=== PATIENT | female | born 1990 | race Caucasian/White ===

== ENCOUNTER 2019-10-19 12:41 | Outpatient (REF) | payer SELFPAY ==
[2019-10-19 12:51] VITALS: BP 126/77; PULSE 71; TEMP 36.8; O2SAT 99
--- NOTE | 2019-10-19 13:04 | W.ED.GENAD ---
Discharge Plan Disposition Patient Disposition: HOME Condition: Improving Discharge Details Chief Complaint: GenMedical Clinical Impression: Acute viral syndrome Primary Care Provider: None,None ED Provider: Jerad Rodarte Home Meds and New Rx's Prescriptions: New guaifenesin [Mucinex] 600 mg tablet extended release 12hr 600 mg PO Q12H PRNQty: 10 RF: 0 Discharge Instructions Instructions: Viral Syndrome (ED) Additional Instructions: Small, frequent sips of fluids to maintain hydration. May take Mucinex as prescribed. May have Benadryl 25 to 50 mg at bedtime as needed for congestion and to aid with sleep. Tylenol 650 to 1000 mg every 6 hours as needed for aches, pains, fever. Home to rest today. Return to the ER for any acute concerns. Please follow-up in women's health as previously scheduled. Stand Alone Forms: Work Release Medical Decision Making 29-year-old female presents from home with 2 days of cough, congestion, fever, body ache. She is 11 weeks . She has no abdominal pain or vaginal discharge. Her vital signs are normal and she is otherwise well-appearing. Rapid influenza screening is negative. Discussed with the patient home management. She is stable and appropriate for trial of outpatient care. She understands indications to seek a reevaluation. HPI General Mode of arrival: ambulatory. Date/Time Provider Initiated Documentation: 10/19/19 12:55. Limitations to Documentation: no limitations. Information obtained by: patient. History of Present Illness 29 year old F presents to the emergency department with the chief complaint of Upper respiratory illness. 11 weeks ., described as mild, and is localized to the chest. Patient started experiencing this day(s) and it has been constant. No relieving factors improve symptom(s), No exacerbating factors reported . Patient notes cough, fever/chills and malaise; denies syncope and weakness. Patient did receive the following treatments prior to arrival, none Related Data Home Medications Medication Instructions Recorded Confirmed guaifenesin [Mucinex] 600 mg PO Q12H PRN #10 tab 10/19/19 Previous Rx's Medication Instructions Recorded guaifenesin [Mucinex] 600 mg PO Q12H PRN #10 tab 10/19/19 Allergies Allergy/AdvReac Type Severity Reaction Status Date / Time No Known Allergies Allergy Verified 10/19/19 13:24 General Stated Complaint: GenMedical DAT: 3 Review of Systems Narrative: 6 systems reviewed and otherwise negative. Sick contacts with her . No recent travel. No vaginal discharge or abdominal pain. [facility] Family History (Updated 10/01/19 @ 16:01 by aCrmela Jaime NP) Father Cirrhosis at 51 Hepatitis C Mother Well adult Social History Smoking/Tobacco Use Status: Never Alcohol Intake: never Drug use: Never Substance use type: does not use Do you feel safe at home: Yes Do you feel safe in your relationship?: Yes Exam Narrative Exam Narrative: GEN: awake, alert, oriented 3. Pleasant, well groomed, interactive. HEAD: Normocephalic, atraumatic ENT: Mucous membranes dry, oropharynx unremarkable, External ear exam unremarkable EYES: PERRL, EOMI NECK: Full ROM, no MAYELA, no menigismus CHEST/RESP: Nontender, clear to auscultation bilateral, no wheeze/rhonchi/rales CARDIOVASCULAR: RRR, no murmur, rub kit. 2+ Rad pulse bilateral ABDOMEN: Soft, nontender, no mass. +Bowel sounds EXT: Full ROM, no edema, no rash Neuro: Grossly normal neurologic exam, conversant, interactive. Psych: Speech fluent, thoughts congruent, affect normal Course Vital Signs Vital signs: Vital Signs Temperature 36.8 C 10/19/19 12:51 Pulse 71 10/19/19 12:51 Blood Pressure 126/77 10/19/19 12:51 Pulse Oximetry 99 10/19/19 12:51 Temperature 36.8 C 10/19/19 12:51 Temperature Source Temporal Artery Scan 10/19/19 12:51 Pulse 71 10/19/19 12:51 Blood Pressure 126/77 10/19/19 12:51 Blood Pressure Position Sitting 10/19/19 12:51 Pulse Oximetry 99 10/19/19 12:51 Oxygen Delivery Method Room Air 10/19/19 12:51 Oxygen Flow Rate 0 10/19/19 12:51 Pain Level 0 10/19/19 12:51 Lab/Test Results Lab/Test Results: 10/19/19 12:50 Nasopharynx Influenza Types A,B Antigen - Pending
[2019-10-19] MEDS: Acetaminophen 500 MG TAB 1000 MG PO (13:20)
[2019-10-19 13:21] VITALS: RESP 16
== END 2019-10-21 17:20 ==
LOC: LBN 10-21 17:00
PROVIDERS: Emergency Provider Emergency Medicine; Visit Provider Advanced Practice Midwife
DX: R05 Cough (principal); R50.9 Fever, unspecified; M79.10 Myalgia, unspecified site; B34.9 Viral infection, unspecified; Z3A.11 11 weeks gestation of pregnancy
CPT/HCPCS: 87449; 99283

== ENCOUNTER 2019-10-21 16:01 | Outpatient (CLI) | payer SELFPAY ==
[2019-10-21 16:34] LABS: Abs Immature Grans 0.01 k/cumm (0.0-0.09); Absolute Basophil Count 0.02 k/cumm (0.0-0.2); Absolute Eosinophil Count 0.33 k/cumm (0.0-0.7); Absolute Lymphocyte Count 1.72 k/cumm (1.2-3.4); Absolute Monocyte Count 0.47 k/cumm (0.11-0.7); Absolute Neutrophil Count 4.93 k/cumm (1.2-6.7); Basophils % 0.3; Eosinophils % 4.4; HGB 12.5 g/dL (12.0-15.5); Immature Grans % 0.1 %; Mean Corp. HGB Concentration 33.8 g/dL (32.0-36.0); Mean Corpuscular Hemoglobin 28.7 pg (27.0-33.0); Mean Corpuscular Volume 85.1 fL (80-95); Mean Platelet Volume 9.4 fL (8.0-11.0); Monocytes % 6.3; Neutrophils % 65.9; Platelet Count 351 x1000/uL (130-400); RBC 4.35 m/cumm (4.00-5.20); RBC Distribution Width 13.5 % (11.7-14.6); White Blood Cell Count 7.48 k/cumm (4.4-10.8)
[2019-10-21 18:06] LABS: TSH (W/Ref FT4) 3.12 uIU/mL (0.36-3.74)
[2019-10-23 09:49] LABS: Hepatitis B Surface Ag Negative (Negative)
[2019-10-23 10:06] LABS: HIV-1/2 Ag & Ab Screen Negative (Negative)
[2019-10-23 11:23] LABS: Varicella IgG Antibody Positive (See Note)
[2019-10-23 11:42] LABS: Hepatitis C Ab w Rflx HCV PCR Negative (Negative); Rubella IgG Ab (UVM) Negative (See Note)
[2019-10-23 16:21] LABS: Syphilis Total Ab w/Reflex Nonreactive (Nonreactive)
== END 2019-10-21 16:21 ==
PROVIDERS: Visit Provider Advanced Practice Midwife
DX: Z34.91 Encounter for supervision of normal pregnancy, unspecified, first trimester (principal); Z11.59 Encounter for screening for other viral diseases; Z11.4 Encounter for screening for human immunodeficiency virus [HIV]; Z01.84 Encounter for antibody response examination
CPT/HCPCS: 36415; 86787; 86803; 86850; 86900; 86901; 87340; 87389; 84443; 85025; 86762; 86780

== ENCOUNTER 2019-10-21 16:56 | Outpatient (REF) | payer SELFPAY ==
--- NOTE | 2019-10-21 15:30 | PAPFT_PTH ---
PATIENT: Madisyn Stoll I LOC: [facility]GE U#:[id number] AGE/SX: 29/F ROOM: RE10/21/[address]: Divine Alejandro CNM : 1990 BED: DIS: 10/21/2019 SPEC #: [id number] RECD: 10/21/19 17:46 STATUS: YOANDY REQ #: [id number] ELO: 10/21/19 15:[address]: Divine Alejandro DEPT: [facility] Cytology RECD BY: Leila Matamoros ENTERED: 10/21/19 17:46 SP TYPE: PAPFT OTHR DR: None Tissues: 1 - CX/ENDOCX FOR PAP SMEARS Procedures: PAP THIN PREP/UVM Screening Comments: [id number]
[2019-10-21 19:04] LABS: *AMPHETAMINES SCREEN URINE Negative (Negative); *BARBITURATES SCREEN URINE Negative (Negative); *BENZODIAZEPINES SCREEN URINE Negative (Negative); Cannabinoids THC Negative (Negative); Cocaine Screen,Urine Negative (Negative); METHADONE URINE SCREEN Negative (Negative); OPIATES URINE SCREEN Negative (Negative)
[2019-10-21 19:26] LABS: Tricyclic Antidepressants Negative (Negative)
[2019-10-23 15:31] LABS: Chlamydia Result Negative (Negative); GC Result Negative (Negative)
[2019-10-26 13:07] LABS: Buprenorphine Negative; Norbuprenorphine Negative
== END 2019-10-21 17:16 ==
LOC: LBN 16:56
PROVIDERS: Visit Provider Advanced Practice Midwife
DX: Z34.91 Encounter for supervision of normal pregnancy, unspecified, first trimester (principal); Z11.3 Encounter for screening for infections with a predominantly sexual mode of transmission; Z12.4 Encounter for screening for malignant neoplasm of cervix; Z11.51 Encounter for screening for human papillomavirus (HPV)
CPT/HCPCS: 80307; 87491; 87591; 88142; 87086

== ENCOUNTER 2019-10-24 09:02 | Outpatient (CLI) | payer SELFPAY ==
[2019-10-24 09:49] LABS: Glucose,1 Hr (Glucola) 63 mg/dL (80-140)
[2019-10-26 11:31] LABS: Thyroglobulin Antibody 23 U/mL (<=60); Thyroperoxidase Antibody <28 U/mL (<=60)
== END 2019-10-24 09:22 ==
PROVIDERS: Obstetrics & Gynecology Gynecology; Visit Provider Advanced Practice Midwife
DX: Z34.91 Encounter for supervision of normal pregnancy, unspecified, first trimester (principal)
CPT/HCPCS: 36415; 82950; 86376

== ENCOUNTER 2019-12-02 01:19 | Outpatient (CLI) | payer SELFPAY ==
--- NOTE | 2019-12-02 09:30 | DI.US_ITS ---
EXAM: US OB 2-3 TRIMESTER CLINICAL HISTORY: , Z34.90. TECHNIQUE: Transabdominal obstetrical ultrasound performed. COMPARISON: No exams were available for comparison FINDINGS: There is a single living intrauterine gestation. The fetus is in the breech position. heart rate is 160 beats per minute. No anatomic abnormalities are identified. Estimated gestational age is 18 weeks 1 day. Visually the amniotic fluid appears within normal limits. The placenta is anterior without evidence of previa. Along the uterine cavity opposite the side of the placenta, there is a cystic area by a thi n band. The area measures 3.6 x 1.2 x 3.1 cm. It is separate from the placenta and the fetus. It i s posterior and fundal in location. IMPRESSION: 1. Single live intrauterine gestation as above. 2. Normal anatomic survey. 3. 3.6 x 1.2 x 3.1 cm cystic area along the posterior and fundal wall of the gestational sac. It is separate from both the placenta and the fetus. Differential considerations include focal separation of chorioamniotic membrane, resolving hematoma, or uterine synechia among other etiologies including an amniotic band. 4. The findings were discussed with the patient's primary care physician. DATA REPOSITORY:
== END 2019-12-02 01:39 ==
PROVIDERS: Visit Provider Obstetrics & Gynecology
DX: Z34.92 Encounter for supervision of normal pregnancy, unspecified, second trimester (principal); Z3A.18 18 weeks gestation of pregnancy; O28.3 Abnormal ultrasonic finding on antenatal screening of mother
CPT/HCPCS: 76805

== ENCOUNTER 2019-12-31 00:36 | Outpatient (CLI) | payer SELFPAY ==
--- NOTE | 2019-12-31 07:31 | DI.US_ITS ---
EXAM: US OB F/U FACIAL/LVOT/RVOT CLINICAL HISTORY: F/U placental cyst vs synechiae on 2nd trimester u/s,043.109. COMPARISON: US OB 2-3 TRIMESTER from 12/02/2019 TECHNIQUE: Transabdominal obstetrical ultrasound performed. FINDINGS: Sonographic images demonstrate a single intrauterine gestation in breech position. Anterior placenta. The previously noted cystic area seen along the uterine wall is no longer seen. heart rate motion is Dopplered at: 144 bpm. Amount of amniotic fluid is within normal limits. IMPRESSION: Previously noted cystic area along the posterior uterine wall is no longer identified. DATA REPOSITORY:
== END 2019-12-31 00:56 ==
PROVIDERS: Visit Provider Obstetrics & Gynecology Gynecology
DX: O43.102 Malformation of placenta, unspecified, second trimester (principal)
CPT/HCPCS: 76815

== ENCOUNTER 2020-03-01 12:18 | Outpatient (CLI) | payer SELFPAY ==
[2020-03-03 14:08] LABS: COVID-19 RT-PCR UVMMC Result Negative (Negative)
== END 2020-03-01 12:38 ==
PROVIDERS: PCP Obstetrics & Gynecology; Visit Provider Obstetrics & Gynecology
DX: Z20.828 Contact with and (suspected) exposure to other viral communicable diseases (principal)
CPT/HCPCS: U0003

== ENCOUNTER 2020-03-08 02:17 | Outpatient (CLI) | payer SELFPAY ==
[2020-03-08 12:23] LABS: Abs Immature Grans 0.03 k/cumm (0.0-0.09); Absolute Basophil Count 0.01 k/cumm (0.0-0.2); Absolute Eosinophil Count 0.13 k/cumm (0.0-0.7); Absolute Lymphocyte Count 1.33 k/cumm (1.2-3.4); Absolute Monocyte Count 0.47 k/cumm (0.11-0.7); Absolute Neutrophil Count 6.02 k/cumm (1.2-6.7); Basophils % 0.1; Eosinophils % 1.6; HCT 26.9 % (36.0-46.0); HGB 8.5 g/dL (12.0-15.5); Immature Grans % 0.4 %; Lymphocytes % 16.6; Mean Corp. HGB Concentration 31.6 g/dL (32.0-36.0); Mean Corpuscular Hemoglobin 26.5 pg (27.0-33.0); Mean Corpuscular Volume 83.8 fL (80-95); Monocytes % 5.9; Neutrophils % 75.4; Platelet Count 329 x1000/uL (130-400); RBC 3.21 m/cumm (4.00-5.20); White Blood Cell Count 7.99 k/cumm (4.4-10.8)
[2020-03-08 12:24] LABS: Glucose,1 Hr (Glucola) 103 mg/dL (80-140)
[2020-03-08 13:16] LABS: Diff Comment RBC Morph Reviewed; Hypochromasia 1+; Polychromasia Present
== END 2020-03-08 02:37 ==
PROVIDERS: Visit Provider Obstetrics & Gynecology
DX: Z34.93 Encounter for supervision of normal pregnancy, unspecified, third trimester (principal)
CPT/HCPCS: 36415; 82950; 85025

== ENCOUNTER 2020-04-14 13:27 | Outpatient (REF) | payer MEDICAID, SELFPAY | END 2020-04-14 13:47 | LOC: LBN 13:27 | PROVIDERS: Visit Provider Obstetrics & Gynecology | DX: Z34.90 Encounter for supervision of normal pregnancy, unspecified, unspecified trimester (principal) | CPT/HCPCS: 87081 ==

== ENCOUNTER 2020-04-17 20:47 | Inpatient (IN) | payer MEDICAID, SELFPAY ==
[2020-04-17 21:25] LABS: ROM Plus Negative
[2020-04-17 21:54] LABS: Abs Immature Grans 0.09 10^3/uL (0.0-0.06); Absolute Basophil Count 0.02 10^3/uL (0.0-0.2); Absolute Eosinophil Count 0.12 10^3/uL (0.0-0.7); Absolute Lymphocyte Count 1.72 10^3/uL (1.2-3.4); Absolute Monocyte Count 0.58 10^3/uL (0.1-0.8); Absolute Neutrophil Count 5.59 10^3/uL (1.2-6.7); Basophils % 0.2; Eosinophils % 1.5; HCT 28.5 % (36.0-46.0); HGB 9.2 g/dL (11.2-15.7); Immature Grans % 1.1; Lymphocytes % 21.2; MCH 26.8 pg (27.0-33.0); MCHC 32.3 % (32.0-36.0); MCV 83.1 fL (80-95); MPV 9.2 fL (8.0-11.0); Monocytes % 7.1; Neutrophils % 68.9; Nucleated RBC 0 %; Platelet Count 293 10^3/uL (130-400); RBC 3.43 10^6/uL (3.93-5.22); RDW 15.6 % (11.7-14.6); RDW-SD 47.2 fL; WBC 8.12 10^3/uL (4.4-10.8)
[2020-04-17] MEDS: AZITHROMYCIN 500 MG in Normal Saline 250 ML 250 MG IVPB (22:00)
[2020-04-17] MEDS: Sodium Citrate 30 ML CUP PO (22:00)
--- NOTE | 2020-04-17 22:02 | HPE_ITS ---
Date of service: 04/17/20 Time of Service: 22:03 Assessment and Plan Assessment and plan (1) Anemia affecting in third trimester: Status: Acute (2) Previous section: Status: Chronic Assessment and plan: Patient with spontaneous rupture membranes who requested a repeat delivery. She has been counseled regarding the risk of the procedure including the risk of infection damage to surrounding structures including bowel bladder ureter and blood vessels. She will have a tubal sterilization performed at the time of her repeat delivery. OR team has been notified. The plan is to administer azithromycin and cefazolin IV preoperatively. (3) : Status: Acute Qualifiers: Weeks of gestation: 37 weeks Qualified Code(s): Z3A.37 - 37 weeks gestation of History of Present Illness History of Present Illness Chief Complaint: Intrauterine at 37-2 nidia pineda with SROM Narrative: Patient is a 30-year-old G3, P2 female with a estimated date of delivery of 05/06/2020 by a LMP confirmed by a OB first her menstrual ultrasound who has been followed by the [facility] since 9 weeks estimated gestational age. She has a total of 11 visits for estramustine blood pressure 110/70 there trimester blood pressure 112/68 total weight gain 9 pounds. Patient's labs have been normal with the exception of heme hematocrit of 26% at 28 weeks she has been instructed to take supplemental iron. Question of a uterine synechiae versus placental cyst on a second trimester ultrasound. Repeat ultrasound imaging showed normal placentation. During her course she was counseled regarding options for a trial of labor and decided upon a repeat delivery with bilateral tubal sterilization. Her Medicaid federal consent form was signed on 03/21/2020. Patient reported a gush of clear fluid this evening accompanied by uterine tightening. She was instructed to present to the center. Review of Systems Constitutional Constitutional: Reports as per HPI Cardiovascular Cardiovascular: Reports system reviewed and no additional complaints, except as documented Respiratory Respiratory: Reports system reviewed and no additional complaints, except as documented Gastrointestinal Gastrointestinal: Reports system reviewed and no additional complaints, except as documented Genitourinary Comments: Gush of clear fluid and tightening of her abdomen earlier this evening. Integumentary/Breasts Comments: Patient reported being interested in breast-feeding Psychiatric Psychiatric: Reports as per HPI Comments: Calm anticipating repeat [facility] Medical History (Updated 04/17/20 @ 22:15 by Amarilys Lee MD) Anemia affecting in third trimester (Acute) 03/08/20. Hct 26%. Pt instructed to begin daily supplemental iron in addition to her vitamin. Family History (Updated 10/01/19 @ 16:01 by Carmela Jaime NP) Father Cirrhosis at 51 Hepatitis C Mother Well adult Social History (Updated 04/18/20 @ 00:55 by Amarilys Lee MD) Smoking/Tobacco Use Status: Never Alcohol Intake: never Drug use: Never Substance use type: does not use Household members: spouse and other Details: H-Caleb Number of Children: 3 Do you feel safe at home: Yes Do you feel safe in your relationship?: Yes History History 3 Para 3 Hx # Term Pregnancies 3 Multiple births 0 Hx # Pregnancies 0 Ectopic pregnancies 0 AB induced 0 Hx Number of Living Children 3 AB spontaneous 0 Past Pregnancies Del. Date GA/Weeks # Outcome Route Wgt Sex Labor Lgth Anesthes ia Location Prov Complic 08/26/15 39 No Successful 7 lb 6 oz Female [facility] 03/29/17 39 No Successful 7 lb 9 oz Female [facility] 04/17/20 37 No Successful Male AO C Delivery Date: 08/26/15 Scheduled C/S for breech Aleta Alejandro Delivery Date: 03/29/17 scheduled repeat C/S Aleta Alejandro Delivery Date: 04/17/20 SROM with cervical dilation. Repeat with bilateral tubal ligation. Amarilys Olmstead Home Medications and Allergies Home Medications Medication Instructions Recorded Confirmed Type acetaminophen 325 mg capsule 650 mg PO Q6H PRN cap 10/21/19 04/14/20 History diphenhydramine HCl 25 mg capsule 20 mg PO QHS PRN cap 10/21/19 04/14/20 History PNV 153-FA 400 mcg-om3 35 mg-dha tab PO DAILY tab 01/25/20 04/14/20 History 25 mg-epa 5 mg-fish oil chew tablet ferrous sulfate 325 mg (65 mg 325 mg PO BID 03/21/20 04/14/20 History iron) tablet calcium carbonate 300 mg (750 mg) 300 mg PO TID 04/04/20 04/14/20 History chewable tablet Allergies Allergy/AdvReac Type Severity Reaction Status Date / Time No Known Allergies Allergy Verified 04/14/20 09:14 Exam Narrative Exam Narrative: Patient was admitted to the center and a ROM+ was obtained with a negative result. However there is copious loss of clear fluid with nitrazine positive results. heart rate in the 150 range with category 1 tracing accelerations 15 x 15. No decelerations. Contractions every 2 to 3 minutes. Will perform vaginal exam prior to transfer to OR. Const General: cooperative and no acute distress Nutritional Appearance: obese Neck Neck: normal visual inspection Resp Effort & Inspection: normal respiratory effort Auscultation: clear to auscultation bilaterally Cardio Rate: regular rate Rhythm: regular rhythm GI Inspection: large pannus Palpation: soft (Gravid) Manual OB Exam: dilated 3 Amniotic Fluid: clear and Nitrazine positive Skin General skin exam: no rashes or lesions noted Extrem General: normal to inspection, capillary refill normal and no clubbing, cyanosis or edema Results Labs Result diagrams: 04/17/20 21:38 Labs: Laboratory Results - last 24 hr 04/17/20 04/17/20 21:00 21:38 WBC 8.12 RBC 3.43 L Hgb 9.2 L Hct 28.5 L MCV 83.1 MCH 26.8 L MCHC 32.3 RDW 15.6 H Plt Count 293 MPV 9.2 Immature Gran % 1.1 Neutrophils % 68.9 Lymphocytes % 21.2 Monocytes % 7.1 Eosinophils % 1.5 Basophils % 0.2 Absolute Neutrophils 5.59 Absolute Lymphocytes 1.72 Absolute Monocytes 0.58 Absolute Eosinophils 0.12 Absolute Basophils 0.02 Membranes Rupture Negative COVID-19 Screening Have you,or household,traveled outside [place] in last 14 days?: No
[2020-04-17] MEDS: ceFAZolin 1 GM/50 ML BAG IVPB (22:24)
--- NOTE | 2020-04-17 23:46 | FALL_PTH ---
PATIENT: Madisyn Stoll I LOC: OBS U#:[id number] AGE/SX: 30/F ROOM: OBS.304 RE04/17/[address]: Amarilys Lee : 1990 BED: A DIS: 04/19/2020 SPEC #: [id number] RECD: 04/18/20 12:21 STATUS: YOANDY REQ #: [id number] ELO: 04/17/20 23:[address]: Amarilys Lee DEPT: Surgical Specimen RECD BY: Leila Matamoros ENTERED: 04/18/20 12:22 SP TYPE: Fall OTHR DR: No Local Tissues: 1 - FALLOPIAN TUBE (STERILIZATION) 2 - FALLOPIAN TUBE (STERILIZATION) Procedures: GROSS AND MICRO LEVEL 2 Comments: [id number]
[2020-04-18] MEDS: Ondansetron 4 MG/2 ML VIAL IVP (02:40)
[2020-04-18] MEDS: Normal Saline Flush 10 ML SYR IVP (02:40)
[2020-04-18] MEDS: MORPHine 2 MG/ML SYR 1 MG IVP (03:25)
[2020-04-18] MEDS: oxyCODONE 5 mg/Acetaminophen 325 mg TAB PO ×3 (04:17→20:09)
[2020-04-18] MEDS: Lactated Ringers 1,000 ML 120 ML IV (05:00)
[2020-04-18] MEDS: Ketorolac 30 MG/ML VIAL IVP ×2 (06:27→12:34)
[2020-04-18] MEDS: Metoclopramide 10 MG/2 ML VIAL IVP (06:52)
[2020-04-18 08:11] LABS: HCT 30.2 % (36.0-46.0); HGB 9.5 g/dL (11.2-15.7); MCH 26.8 pg (27.0-33.0); MCHC 31.5 % (32.0-36.0); MCV 85.1 fL (80-95); MPV 9.1 fL (8.0-11.0); Platelet Count 280 10^3/uL (130-400); RBC 3.55 10^6/uL (3.93-5.22); RDW 15.7 % (11.7-14.6); RDW-SD 48.7 fL; WBC 11.36 10^3/uL (4.4-10.8)
--- NOTE | 2020-04-18 12:19 | W.PM.OP ---
Date of service: 04/18/20 Time of Service: 12:20 Operative Note Operative Note DATE OF PROCEDURE: 04/17/20 PRE-OP DIAGNOSIS: IUP with spontaneous rupture membranes at 37-2/7 weeks EGA. 2 prior deliveries. POST-OP DIAGNOSIS: same Brady breech presentation PROCEDURE: Unscheduled urgent nonelective low transverse delivery with bilateral salpingectomy SURGEON: Amarilys Lee TURPENTINE FARMER: Gabi Tyler ANESTHESIA: spinal ESTIMATED BLOOD LOSS: 500 PATHOLOGY: other (Bilateral fallopian tubes) COMPLICATIONS: None Patient was transported to: floor Patient's condition: stable Indications: 30-year-old G3, P2 female with a history of 2 prior deliveries who was counseled during her regarding options for delivery. She declined a trial of labor at [facility] and was scheduled for a elective repeat delivery later in the month. She has signed federal consent for tubal sterilization and requested bilateral permanent tubal sterilization. She presented with spontaneous rupture membranes clear fluid and proceeded to have a repeat delivery with bilateral tubal sterilization Findings: Viable male infant who will be named Roc in the brady breech presentation clear amniotic fluid weight 7 pounds 2 ounces (3253 gm) Apgars 7/8. Normal adnexa normal uterus. A Pesko uterine peritoneum was adherent to the mid position of the anterior portion of the uterus and was dissected off to access the lower uterine segment. Procedure Description: Patient was taken to the operating room she is placed in the sitting position and spinal anesthesia was administered without difficulty. She was then placed in the dorsal supine position with a leftward tilt. SCDs and a Garrett catheter to gravity drainage were in place. A vaginal prep with Betadine was performed and the patient was prepped and draped in the usual sterile fashion. After a adequate level of anesthesia was achieved a Pfannenstiel skin incision was made approximately 2 cm superior to the pubic symphysis using a scalpel and the underlying subcutaneous tissue dissected using Bovie electrocautery to the level of the rectus fascia. The rectus fascia was then nicked in the midline and the fascial incision extended laterally using curved Montes scissors. 2 Ivanna clamps were applied to the inferior rectus fascia and the rectus fascia was dissected off of the underlying rectus muscles using Bovie electrocautery and blunt technique. A similar technique was carried out on the superior rectus fascia. Rectus muscles were then in the midline and the peritoneum entered bluntly higher up on the anterior surface of the uterus then would normally be performed. The peritoneum was dissected off of the lower uterine segment using sharp dissection and blunt technique. An Bryan self-retaining retractor was then placed in the incision and opened allowing excellent visualization of the uterus. The vesicle-uterine peritoneum over lower uterine segment was incised with curved Montes scissors and the bladder flap created bluntly. Scalpel was used to incise the lower uterine segment in a transverse fashion. The uterine incision was extended bluntly and the amniotic sac was ruptured and a finger was placed on each anterior superior iliac crest of the breech presentation with some to difficulty the Bryan retractor removed and fascial incision incised vertically to a depth of 2 cm which allowed buttocks to be delivered with assistance of fundal pressure. The and the buttocks followed by the trunk were delivered to the level of the shoulders. Both arms were swept across the chest and the head was delivered atraumatically. The cord was doubly clamped and cut and the handed off to the waiting pediatric team. Cord bloods were obtained and the placenta was extracted with a combination of fundal massage and gentle cord traction. The uterus was exteriorized cleared of all clots and debris and the uterine incision reapproximated with a running lock suture of 0 Vicryl followed by a second imbricating suture of 0 Vicryl. Uterine incision was noted be hemostatic. A LigaSure device was used to clamp cauterize and transect the right fallopian tube at the fimbriated end along and along the mesosalpinx to the level of the right uterine cornua where the right fallopian tube was cauterized, transected and removed intact and passed off the operative field. A similar technique was carried out on the contralateral left fallopian tube. There was a hematoma along the superior proximal portion of the right venous plexus at the uterine cornua. The hematoma was repaired and controlled using interrupted suture of 0 Vicryl. Both pedicle sites from the ectomy were noted be hemostatic. The uterus was returned to the abdomen. The peritoneum was reapproximated with a running suture of 2-0 Vicryl. The rectus fascial vertical incision was reapproximated with a running suture 0 Vicryl. The rectus fascia of the was reapproximated with a running suture of 0 Vicryl extending from the left lateral margin and completed at the right lateral margin. Subcutaneous tissue was closed with a running suture of 2-0 Vicryl. The subcutaneous tissue the and was undermined with Bovie electrocautery to allow reapproximation of the skin using 4-0 Vicryl in a subcuticular suture. Skin was closed with skin glue and a dry sterile dressing applied. Uterus was massaged for any remaining clots and debris. [facility] to recovery area in stable condition all sponge lap needle counts correct x2.
[2020-04-18 14:15] LABS: COVID-19 RT-PCR UVMMC Result Negative (Negative)
[2020-04-18] MEDS: Docusate Sodium 100 MG CAP PO ×2 (15:59→22:47)
--- NOTE | 2020-04-19 07:33 | DSE_ITS ---
DS: Diagnosis Discharge Diagnosis (1) Anemia affecting in third trimester: Status: Acute (2) Previous section: Status: Chronic (3) : Status: Acute (4) Labor presentation, breech: Status: Acute (5) Hx of section: Status: Chronic Discharge Plan Disposition Patient Disposition: HOME Condition: Good Discharge Details Reason For Visit: RUPTURED MEMBRANES Admit Date/Time: 04/17/20 21:24 Admit Provider: Amarilys Lee Attending Provider: Amarilys Lee Primary Care Provider: [facility] Course Hospital Course: Patient [facility] during her course which was uncomplicated. She had 2 previous deliveries and declined a trial of labor at [facility]. She requested a repeat delivery and bilateral tubal sterilization at the time of her repeat section. On the evening of surgery she presented with rupture of membranes and cervical dilatation. A delivery was performed with tubal sterilization the infant was in breech presentation at that time. Patient was discharged home on postop day 2 tolerating a regular diet voiding spontaneously and using rare Percocet and ibuprofen for pain. The plan is to perform a telehealth visit in 2 weeks to assess her mood and course. Home Meds and New Rx's Prescriptions: No Action acetaminophen [Tylenol] 325 mg capsule 650 mg PO Q6H PRNRF: 0 diphenhydramine HCl [Benadryl] 25 mg capsule 20 mg PO QHS PRNRF: 0 calcium carbonate [Tums] 300 mg (750 mg) tablet,chewable 300 mg PO TID RF: 0 Gummies 400 mcg-35 mg- 25 mg-5 mg tablet,chewable 1 tab PO DAILY RF: 0 ferrous sulfate [iron] 325 mg (65 mg iron) tablet 325 mg PO BID RF: 0 Discharge Instructions Stand Alone Forms: BC Discharge Instruc Activity:: Activity as Tolerated Equipment/Supplies:: No Equipment Needed Diet:: As Tolerated Discharge Orders Discharge Orders: Discharge Order (Routine); Ordered 04/19/20 Ordered By: Amarilys Lee DS: Summary Status at Discharge Functional status at discharge: independent ambulation Overall status at discharge: patient is back to baseline Mental Status: mental status grossly normal Speech and Movement: speech and movement normal Mood: congruent mood Affect: normal affect Exam Psych Mental Status: mental status grossly normal Speech and Movement: speech and movement normal Mood: congruent mood Affect: normal affect DS: Data Vitals/I&O Vitals and I&O: Vital Signs Pain Level 6 04/18/20 20:09 Intake & Output 04/18/20 04/18/20 04/19/20 11:59 23:59 11:59 Weight 249 lb Data Completed and Pending Labs on day of discharge: Labs from last 24 hours 04/18/20 04/17/20 08:00 22:10 WBC 11.36 H D RBC 3.55 L Hgb 9.5 L Hct 30.2 L MCV 85.1 MCH 26.8 L MCHC 31.5 L RDW 15.7 H Plt Count 280 MPV 9.1 COVID-19 PCR Negative Nasopharyn COVID-19 PCR Not Applicable Ref Test Perform Site [facility] lab [facility] Medical History (Updated 04/19/20 @ 07:48 by Amarilys Lee MD) Anemia affecting in third trimester (Acute) 03/08/20. Hct 26%. Pt instructed to begin daily supplemental iron in addition to her vitamin. Labor presentation, breech (Acute) Surgical History (Updated 04/19/20 @ 07:49 by Amarilys Lee MD) Hx of section (Chronic) Family History (Updated 10/01/19 @ 16:01 by Carmela Jaime NP) Father Cirrhosis at 51 Hepatitis C Mother Well adult Social History (Updated 04/18/20 @ 00:55 by Amarilys Lee MD) Smoking/Tobacco Use Status: Never Alcohol Intake: never Drug use: Never Substance use type: does not use Household members: spouse and other Details: H-Caleb Number of Children: 3 Do you feel safe at home: Yes Do you feel safe in your relationship?: Yes History History 3 Para 3 Hx # Term Pregnancies 3 Multiple births 0 Hx # Pregnancies 0 Ectopic pregnancies 0 AB induced 0 Hx Number of Living Children 3 AB spontaneous 0 Past Pregnancies Del. Date GA/Weeks # Outcome Route Wgt Sex Labor Lgth Anesthes ia Location Prov Complic 08/26/15 39 No Successful 7 lb 6 oz Female [facility] 03/29/17 39 No Successful 7 lb 9 oz Female [facility] 04/17/20 37 No Successful Male AO C Delivery Date: 08/26/15 Scheduled C/S for breech Aleta Alejandro Delivery Date: 03/29/17 scheduled repeat C/S Aleta Alejandro Delivery Date: 04/17/20 SROM with cervical dilation. Repeat with bilateral tubal ligation. Amarilys Olmstead
[2020-04-19] MEDS: oxyCODONE 5 mg/Acetaminophen 325 mg TAB PO (08:04)
== END 2020-04-19 11:30 | disposition home or self-care (01) | DRG 785 ==
PROVIDERS: Admitting Provider Obstetrics & Gynecology Gynecology; Visit Provider Obstetrics & Gynecology Gynecology
PROC: 10D00Z1 Extraction of Products of Conception, Low, Open Approach (ICD-10-PCS; CPT 59514; principal; 2020-04-17 22:30)
DX: O75.82 Onset (spontaneous) of labor after 37 completed weeks of gestation but before 39 completed weeks gestation, with delivery by (planned) cesarean section (principal); Z37.0 Single live birth; Z3A.37 37 weeks gestation of pregnancy; Z30.2 Encounter for sterilization; O42.02 Full-term premature rupture of membranes, onset of labor within 24 hours of rupture; O34.211 Maternal care for low transverse scar from previous cesarean delivery; O32.1XX0 Maternal care for breech presentation, not applicable or unspecified; O99.02 Anemia complicating childbirth; D64.9 Anemia, unspecified; N99.4 Postprocedural pelvic peritoneal adhesions
CPT/HCPCS: 59514; 58611; 36415; 84112; 85027; 86850; 86900; 86901; NC; U0003; 85025; 88302; J0456; J0690; J1885; J2270; J2310; J2405; J2765; J3010

== ENCOUNTER 2020-07-21 16:52 | Outpatient (REF) | payer MEDICAID, SELFPAY ==
[2020-07-26 15:21] LABS: Patient Race White; SARS-CoV-2 RNA Undetected (Undetected); SARS-CoV-2 Specimen Source Nasal
== END 2020-07-21 17:12 ==
LOC: NCHCN 16:52
PROVIDERS: PCP Nurse Practitioner Family; Visit Provider Nurse Practitioner Family
DX: J00 Acute nasopharyngitis [common cold] (principal)
CPT/HCPCS: U0003

== ENCOUNTER 2020-09-25 20:31 | Emergency (ER) | payer MEDICAID, SELFPAY ==
[2020-09-25 20:40] VITALS: BP 131/61; PULSE 73; RESP 18; TEMP 36.4; O2SAT 98
--- NOTE | 2020-09-25 21:03 | ED.GENADUL_ITS ---
Discharge Plan Disposition Patient Disposition: HOME Condition: Stable Discharge Details Clinical Impression: Left flank pain Primary Care Provider: Ramesh Castaneda ED Provider: Mirna Velasco Home Meds and New Rx's Prescriptions: No Action No Known Home Meds RF: 0 Discharge Instructions Instructions: Flank Pain (ED) Additional Instructions: Encourage water intake. You may continue with Tylenol and/or ibuprofen as needed for discomfort. You may continue with topical options such as Lidoderm patches as well to help with your pain. I have referred you to primary care. Care management will reach out to you regarding follow-up appointment. If you develop any fever/chills, pain with urination, increased pain or other new/worsening symptom please seek care urgently once again. Stand Alone Forms: Work Release Referrals: Ramesh Castaneda MANAGER DATABASE ADMINISTRATION [Primary Care Provider] - Medical Decision Making <LINDSEY Del Real - Last Filed: 09/25/20 22:08> Madisyn is a 30-year-old female who presents with left-sided flank pain that began 1 week ago and has worsened today. She does not necessarily endorse any activity in which she hurt this area with lifting or twisting. She is unsure what has made it worse. It seems to be painful both with movement as well as without movement. She states it is always there but at times worse. She has never had anything like this before. She does endorse family history of kidney stones in her brother but is unsure of her parents. She has had no previous history of UTI or pyelonephritis. Her LMP was at the end of August and has had tubal ligation. She denies vaginal discharge or history of sexually transmitted infections. Other than tubal ligation she had 3 C-sections and no other abdominal surgeries. She does not take any medications to help with the pain. She has had no fevers but felt slightly chilled this morning but did not continue with such. She's been without nausea or vomiting. She had mild diarrhea without bloody stool. She does report urgency and frequency with urination which she states seems to be baseline for her given 3 previous . She denies dysuria or hematuria. She has no chest pain or sensation of shortness of breath. Differential diagnosis includes but not limited to left flank pain concerning for things such as UTI, pyelonephritis, ureteral colic. After evaluated the patient I considered possibility of PE although I think less likely the case given her presentation. Also considered possibility of things such as PID although she denies things such as vaginal discharge and has no history of previous STI. Presentation does not seem to be consistent with pain such as ectopic and she has had previous tubal. IV will be established and blood work will be obtained including CBC, CMP, urinalysis and hCG testing. She will be given 15 mg of Toradol and declines need for antinausea medications. States she has been well-hydrated. Will await laboratories to dictate need for CT imaging. Laboratories are reassuring there is no elevated white blood cell count, kidney function looks appropriate and there is no signs of urinary tract infection. Patient continues to have discomfort despite the 15 mg of Toradol. She did drive here and at this time will avoid opioids should be in 1 g of Tylenol. I discussed with her options to obtain CT renal tonight versus outpatient ultrasound. Given that she is having continued discomfort which has been noted to be worsening over the last last week we have decided to obtain CT renal tonight. This will be done and patient carries inclined fully over to LINDSEY Bradley. Please see her note for final details regarding disposition and diagnosis. All of the patient's questions were answered and normal thyroid volume she felt comfortable with the care plan discussed. <LINDSEY Hall - Last Filed: 09/25/20 23:06> Transition myself from Oriana Goncalves PA-C. Please see her initial note regarding history, presentation and exam. In brief, patient is a 30-year-old female presenting today with concern for left flank pain that radiates to the left side of the groin x1 week. Work-up thus far was included CBC, CMP and UA is unremarkable. Patient did appear slightly dehydrated elevated specific gravity. She has been receiving fluids. Received Toradol and Tylenol thus far. There was concern for potential kidney stone as her brother has had stones historically. CT pending. FINDINGS: Lungs: The lung bases are clear. Pleural space: No pleural effusion. Heart: Normal heart size without pericardial effusion. Liver: Normal. No mass. Gallbladder and bile ducts: Normal. No calcified stones. No ductal dilation. Pancreas: Normal. No ductal dilation. Spleen: Normal. No splenomegaly. Adrenal glands: Normal. No mass. Kidneys and ureters: The kidneys are within normal limits without hydronephrosis, perinephric stranding, or calcified stones. Stomach and bowel: The stomach is within normal limits. No bowel obstruction or wall thickening. Mild colonic diverticulosis without focal wall thickening or pericolonic infiltration to suggest acute diverticulitis. Appendix: Normal appendix. Intraperitoneal space: No free fluid, pneumoperitoneum, or drainable fluid collection. Vasculature: No abdominal aortic aneurysm. Lymph nodes: No enlarged lymph nodes. Urinary bladder: Unremarkable as visualized. Reproductive: The uterus and adnexa are within normal limits. Bones/joints: Mild degenerative changes in the spine at T11-T12 Soft tissues: Within normal limits. IMPRESSION: No acute findings. I discussed the findings with the patient. She does not appear to be in any acu te distress. Patient distribution of pain, wondering if this could be musculoskeletal and will place Lidoderm patch. She is requesting a work note. Strict return precautions were given. Patient does not have a primary care, will ask her care management team to help arrange for close follow-up with primary care. She will continue with Tylenol and/or ibuprofen as needed for discomfort. All of her questions and concerns were addressed and she is agreement this plan. HPI <LINDSEY Del Real - Last Filed: 09/25/20 22:08> General Mode of arrival: ambulatory . Date/Time Provider Initiated Documentation: 09/25/20 20:34 . Limitations to Documentation: no limitations . Information obtained by: patient . HPI Narrative: Barbara is a 30-year-old female who presents with left-sided flank pain that began 1 week ago and has worsened today. Related Data Home Medications Medication Instructions Recorded Confirmed Unknown [No Known Home Meds] 09/25/20 09/25/20 Allergies Allergy/AdvReac Type Severity Reaction Status Date / Time No Known Allergies Allergy Verified 04/26/20 10:13 General Stated Complaint: FlankPain DAT: 2 Review of Systems <LINDSEY Del Real - Last Filed: 09/25/20 22:08> All systems reviewed & are unremarkable except as noted in HPI and below PFSH <LINDSEY Del Real - Last Filed: 09/25/20 22:08> Medical History Anemia affecting in third trimester 03/08/20. Hct 26%. Pt instructed to begin daily supplemental iron in addition to her vitamin. delivery delivered Labor presentation, breech Positive test Surgical History Hx of section Tubal ligation status Tubal sterilization at time of RC/S. Family History Father Cirrhosis at 51 Hepatitis C Mother Well adult Social History Smoking/Tobacco Use Status: Current every day Tobacco Type: cigarettes Smoking risk assessment performed?: Yes Alcohol Intake: current Alcohol Intake frequency: a few times a month Drug use: Never Substance use type: does not use Household members: spouse and other Details: H-Caleb Number of Children: 3 Do you feel safe at home: Yes Do you feel safe in your relationship?: Yes History History 3 Para 3 Hx # Term Pregnancies 3 Multiple births 0 Hx # Pregnancies 0 Ectopic pregnancies 0 AB induced 0 Hx Number of Living Children 3 AB spontaneous 0 Past Pregnancies Del. Date GA/Weeks # Outcome Route Wgt Sex Labor Lgth Anesthes ia Location [facility] 08/26/15 39 No Successful 3345.[address] [facility] 03/29/17 39 No Successful 3430.[address] [facility] 04/17/20 37 No Successful 3231.846 g Male [facility] Delivery Date: 08/26/15 Scheduled C/S for breech Fran Alejandrode Delivery Date: 03/29/17 scheduled repeat C/S FlaviaAleta Delivery Date: 04/17/20 SROM with cervical dilation. Repeat with bilateral tubal ligation. Amarilys Olmstead Exam <LINDSEY Del Real - Last Filed: 09/25/20 22:08> Narrative Exam Narrative: CONSTITUTIONAL: Afebrile, well-appearing young adult female, sitting in stretcher, in no acute distress. SKIN: [place], warm and moist. No diaphoresis, pallor, cyanosis, icterus or edema. No lesions, hives, petechiae or ecchymoses. EYES: Pupils equal and round. EOMI voluntarily. Conjunctivae clear w/o erythema or injection. Sclera white. HENT: Head normocephalic, atraumatic. NECK: Trachea midline. Neck supple with full range of motion. No nuchal rigidity. RESPIRATORY: CTAB. No wheezes, rhonchi or rales. Breathing non-labored. CARDIOVASCULAR: Radial pulses 3+ bilaterally. Brisk capillary refill noted. GI: BSP. Abdomen soft, nondistended, slightly tender along the left flank radiating from the left CVA. She reports some slight discomfort to palpation over the suprapubic region but is without pain to tenderness throughout palpation of the rest of the abdomen. No palpable masses or HSM. No rebound, guarding or rigidity. : Left CVA tenderness, no right CVA tenderness. MUSCULOSKELETAL: Extremities appear atraumatic with no obvious deformities, cyanosis, clubbing, or edema and with FROM. NEURO: Cranial nerves II-XII grossly intact. No significant motor or sensory deficits appreciated in the upper or lower extremities. No obvious ataxia PSYCH: Appropriate mood and affect. Course <LINDSEY Del Real - Last Filed: 09/25/20 22:08> Vital Signs Vital signs: Vital Signs Temperature 97.5 F L 09/25/20 20:40 Pulse 73 09/25/20 20:40 Respiratory Rate 18 09/25/20 20:40 Blood Pressure 131/61 09/25/20 20:40 Pulse Oximetry 98 09/25/20 20:40 Temperature 97.5 F L 09/25/20 20:40 Temperature Source Temporal Artery Scan 09/25/20 20:40 Pulse 73 09/25/20 20:40 Respiratory Rate 18 09/25/20 20:40 Respiratory Effort Non-Labored 09/25/20 21:00 Blood Pressure 131/61 09/25/20 20:40 Blood Pressure Position Sitting 09/25/20 20:40 Pulse Oximetry 98 09/25/20 20:40 Oxygen Delivery Method Room Air 09/25/20 20:40 Oxygen Flow Rate 0 09/25/20 20:40 Pain Level 8 09/25/20 20:40 Lab/Test Results Lab/Test Results: POC Urine Test Start: 09/25/20 20:58 Freq: Status: Complete Protocol: Document 09/25/20 20:59 CP (Rec: 09/25/20 20:59 CP [id number]) Test(Urine)-POC POC- Test(urine) Negative POC- Test(urine) Negative Sign Out <LINDSEY Del Real - Last Filed: 09/25/20 22:08> Sign Out Data: Sign Out Comment: imaging pending Last updated by Linette Vegas PA at 09/25/20 22:04
[2020-09-25] MEDS: Ketorolac 30 MG/ML VIAL 15 MG IVP (21:18)
[2020-09-25 21:27] LABS: Abs Immature Grans 0.02 10^3/uL (0.0-0.06); Absolute Basophil Count 0.04 10^3/uL (0.0-0.2); Absolute Eosinophil Count 0.55 10^3/uL (0.0-0.7); Absolute Lymphocyte Count 3.06 10^3/uL (1.2-3.4); Absolute Monocyte Count 0.64 10^3/uL (0.1-0.8); Basophils % 0.4; HGB 11.8 g/dL (11.2-15.7); Immature Grans % 0.2; Lymphocytes % 33.6; MCH 28.5 pg (27.0-33.0); MCHC 32.8 % (32.0-36.0); MPV 9.7 fL (8.0-11.0); Neutrophils % 52.8; Nucleated RBC 0 %; Platelet Count 347 10^3/uL (130-400); RBC 4.14 10^6/uL (3.93-5.22); RDW 12.7 % (11.7-14.6); RDW-SD 40.5 fL; WBC 9.11 10^3/uL (4.4-10.8)
[2020-09-25 21:31] LABS: Bilirubin Negative (Negative); Blood Negative (Negative); Clarity Clear (Clear); Glucose Negative (Negative); Ketones Negative (Negative); Leukocyte Esterase Negative (Negative); Nitrite Negative (Negative); Specific Gravity >= 1.030 (1.005-1.025); Urobilinogen 0.2 EU/dL (Up TO 0.2); pH 5.5 (5-8)
[2020-09-25 21:37] LABS: ALT 22 U/L (14-59); AST 10 U/L (15-37); Albumin 3.8 g/dL (3.4-5.0); Alkaline Phosphatase 114 U/L (46-116); Anion Gap 10.2 mmol/L (3-11); BUN 10 mg/dL (7-18); Bilirubin, Total 0.2 mg/dL (0.2-1.0); CO2 24.8 mmol/L (21.0-32.0); CREATININE 0.92 mg/dL (0.55-1.02); Calcium 8.9 mg/dL (8.5-10.1); Chloride 107 mmol/L (98-107); Glucose 78 mg/dL (74-106); Potassium 3.5 mmol/L (3.5-5.1); Sodium 142 mmol/L (136-145); Total Protein 6.7 g/dL (6.4-8.2)
--- NOTE | 2020-09-25 21:45 | DI.CT_ITS ---
EXAM: CT RENAL COLIC WO CLINICAL HISTORY: left flank pain. TECHNIQUE: Imaging Protocol: Axial computed tomography images with coronal and sagittal reformatted images were created and reviewed. COMPARISON: No exams were available for comparison FINDINGS: ABDOMEN: Lung Bases: Normal where visualized. Liver: Normal density. No measurable mass. Gallbladder and biliary tract: No radiodense calculus or biliary ductal dilation. Pancreas: Normal density, no abnormal calcifications or inflammatory process. Spleen: Normal. Kidneys: Normal size, contour and axis.No radiodense stones or obstructive uropathy. No masses seen. Adrenal glands: No mass is seen. Lymph nodes: Within normal limits. Abdominal Aorta: Abdominal portion non-dilated. PELVIS: Bladder:Symmetric distention, no gross wall thickening. Bowel: No obstruction or bowel wall thickening. Appendix is unremarkable. Peritoneal cavity: No ascites, collection or mesenteric inflammatory response Reproductive organs: Within normal limits. Bones: Within normal limits. Soft Tissues: Within normal limits. IMPRESSION: No acute abdominal pelvic process. No evidence of nephrolithiasis or hydronephrosis. RADIATION DOSE DELIVERED: 1,180.52mGy.cm Total DLP DATA REPOSITORY: All CT scans at this facility are submitted to the National Radiology Data Registry (NRDR) Dose Index Registry (DIR) with the [employer] (ACR). RADIATION OPTIMIZATION: All CT scans at this facility use at least one of these dose optimization te chniques: automated exposure control; mA and/or kV adjustment per patient size (includes targeted exa ms where dose is matched to clinical indication); or iterative reconstruction.
[2020-09-25] MEDS: Acetaminophen 500 MG TAB 1000 MG PO (22:04)
--- NOTE | 2020-09-25 22:33 | DI.VRAD_ITS ---
PROCEDURE INFORMATION: Exam: CT Abdomen And Pelvis Without Contrast Exam date and time: 09/25/2020 9:59 PM Age: 30 years old Clinical indication: Abdominal pain and other: L flank; Localized; Left lower quadrant (llq); Prior surgery; Surgery date: 1-6 months; Surgery type: C section x 3 last 5 months ago; Patient HX: L flank pain radiating into llq TECHNIQUE: Imaging protocol: Computed tomography of the abdomen and pelvis without contrast. Radiation optimization: All CT scans at this facility use at least one of these dose optimization techniques: automated exposure control; mA and/or kV adjustment per patient size (includes targeted exams where dose is matched to clinical indication); or iterative reconstruction. COMPARISON: US OB F/U FACIAL/LVOT/RVOT 12/31/2019 1:46 PM FINDINGS: Lungs: The lung bases are clear. Pleural space: No pleural effusion. Heart: Normal heart size without pericardial effusion. Liver: Normal. No mass. Gallbladder and bile ducts: Normal. No calcified stones. No ductal dilation. Pancreas: Normal. No ductal dilation. Spleen: Normal. No splenomegaly. Adrenal glands: Normal. No mass. Kidneys and ureters: The kidneys are within normal limits without hydronephrosis, perinephric stranding, or calcified stones. Stomach and bowel: The stomach is within normal limits. No bowel obstruction or wall thickening. Mild colonic diverticulosis without focal wall thickening or pericolonic infiltration to suggest acute diverticulitis. Appendix: Normal appendix. Intraperitoneal space: No free fluid, pneumoperitoneum, or drainable fluid collection. Vasculature: No abdominal aortic aneurysm. Lymph nodes: No enlarged lymph nodes. Urinary bladder: Unremarkable as visualized. Reproductive: The uterus and adnexa are within normal limits. Bones/joints: Mild degenerative changes in the spine at T11-T12 Soft tissues: Within normal limits. IMPRESSION: No acute findings. Dictated and Authenticated by: Valery Robledo MD. Ordering:JESUSITA Sue MD
--- NOTE | 2020-09-25 22:49 | NUR.NOTE ---
Nursing Note: REFERAL SENT TO CM TO EST PCP AND MAKE APPT IN 2 WEEKS
[2020-09-25] MEDS: Lidocaine 5% Patch 1 PATCH TP (22:57)
--- NOTE | 2020-09-26 17:35 | PDOC.ERCMPRO ---
- If Service Date Differs Date of service: 09/26/20 Time of Service: 17:35 Care Management Progress Note Madisyn is seen in the ED on 09/25/20 for flank pain. ED provider requests that CM help Madisyn establish care with a PCP. A review of her chart reveals that she has been seen at [facility] in the past. A telephone call to the [facility] reveals that Madisyn was seen for testing and was given opening paperwork to complete and return at that time. As of this date, however, the paperwork has not been returned. The [facility] has agreed to outreach to her to provide her with a follow up appointment and to assist her in completing the process to establish care.
== END 2020-09-25 22:10 | disposition home or self-care (01) ==
PROVIDERS: Physician Assistant Medical; Emergency Provider Physician Assistant; PCP Nurse Practitioner Family
DX: R10.12 Left upper quadrant pain (principal); E86.0 Dehydration
CPT/HCPCS: 36415; 80053; 81025; 96374; 99284; 74176; 81003; 85025; J1885

== ENCOUNTER 2020-09-27 12:27 | Emergency (ER) | payer MEDICAID, SELFPAY ==
--- NOTE | 2020-09-27 12:45 | DI.US_ITS ---
EXAM: US PELVIS TRANSVAGINAL CLINICAL HISTORY: left lower abdominal pain, radiation to flank. TECHNIQUE: Transabdominal and transvaginal pelvic ultrasound was performed using standard protocol. COMPARISON: US US OB F/U FACIAL/LVOT/RVOT from 12/31/2019 FINDINGS: KIDNEYS: Kidneys are symmetric in size. No evidence of renal calculi. No evidence of hydronephrosis. No renal mass or cyst identified. UTERUS: Position: Anteverted. Size: 7.5 long by 4.0 AP by 5.3 transverse cm Endometrium: 0.8 cm. Normal for patient's menstrual status. Myometrium: Unremarkable. Cervix: Unremarkable. OVARIES: Right: 2.9 x 2.2 x 1.9 cm Cyst or mass: Small follicular cysts. Left: 2.8 x 1.9 x 2.2 cm Cyst or mass: 0.8 cm hypoechoic lesion likely reflecting a functional cyst. DOPPLER: Color: Symmetric and uniform flow to both ovaries. No hyperemia. Duplex: Normal ovarian arterial waveforms visualized. CUL-DE-SAC: Free fluid: None. Other: None. IMPRESSION: 1. Normal sonographic appearance of the kidneys. 2. Normal-appearing uterus with endometrial stripe within normal limits. 3. Bilateral functional ovarian cysts. DATA REPOSITORY:
--- NOTE | 2020-09-27 12:56 | ED.GENADUL_ITS ---
Discharge Plan Disposition Patient Disposition: HOME Condition: Good Discharge Details Clinical Impression: Acute PID (pelvic inflammatory disease), Bacterial vaginosis Primary Care Provider: Ramesh Castaneda ED Provider: Leila Schultz Home Meds and New Rx's Prescriptions: New doxycycline hyclate 100 mg capsule 100 mg PO BID 14 Days Qty: 28 RF: 0 metronidazole [Flagyl] 500 mg tablet 500 mg PO BID Qty: 14 RF: 0 ondansetron HCl [Zofran] 4 mg tablet 4 mg PO Q8H PRNQty: 10 RF: 0 Discharge Instructions Additional Instructions: Follow-up with your digital operations analyst tomorrow Take antibiotics as prescribed Yogurt daily while on antibiotics Return if fever, chills, with or with any new or worsening complaints Ibuprofen and Tylenol as needed for pain Zofran as needed for nausea and vomiting Stand Alone Forms: Work Release Medical Decision Making Patient appears well, she is alert, oriented, of decisional capacity, I am unable to find another reason for the patient's comfort and she is quite tender over the left adnexal region, I will treat her empirically for PID and have her follow-up with her doctor tomorrow She is stable for discharge home Ultrasound does not show evidence of tubo-ovarian abscess He did speak with Dr. Stoll regarding ultrasound results She is positive for bacterial vaginosis which will be treated with Flagyl, have also placed patient on 14 days of doxycycline Urinalysis did not show acute pathology Patient is not , her diagnostic labs are reassuring Given the threshold to return for new or worsening complaints Differential Diagnosis Differential Diagnosis: PID, ureterolithiasis, pyelonephritis, ovarian cyst, tubo-ovarian abscess Lab Data Lab results reviewed: Yes I reviewed the patient's lab results. HPI This 30-year-old female presents for second ER visit in the last 3 days for pelvic pain. The pain radiates to her left flank. She felt that the nausea and vomiting. She denies fever or chills. She is 5 months and impaired section. She not currently breast-feeding. She has an abnormal vaginal discharge. Her last intercourse was a week ago and denies dyspareunia. She denies any diarrhea. Her pain is exacerbated with bowel movements, movement, position change. She had the pain for approximately a week and a half. She had a CT scan that did not show acute abnormality. She denies any additional complaints at this time. She been taking ibuprofen and Tylenol as needed for discomfort. She did have a tubal ligation in April and denies chance of . She is sexually active and monogamous with her . She described the pain as sharp and radiating. General Date/Time Provider Initiated Documentation: 09/27/20 12:29 . Related Data Home Medications Medication Instructions Recorded Confirmed doxycycline hyclate 100 mg PO BID 14 Days #28 cap 09/27/20 metronidazole [Flagyl] 500 mg PO BID #14 tab 09/27/20 ondansetron HCl [Zofran] 4 mg PO Q8H PRN #10 tab 09/27/20 Previous Rx's Medication Instructions Recorded doxycycline hyclate 100 mg PO BID 14 Days #28 cap 09/27/20 metronidazole [Flagyl] 500 mg PO BID #14 tab 09/27/20 ondansetron HCl [Zofran] 4 mg PO Q8H PRN #10 tab 09/27/20 Allergies Allergy/AdvReac Type Severity Reaction Status Date / Time No Known Allergies Allergy Verified 09/27/20 12:35 General Stated Complaint: Abd Prob DAT: 3 Review of Systems Narrative: Review of systems negative x7 indicated in [facility]PI [facility] Medical History Anemia affecting in third trimester 03/08/20. Hct 26%. Pt instructed to begin daily supplemental iron in addition to her vitamin. delivery delivered Labor presentation, breech Positive test Surgical History Hx of section Tubal ligation status Tubal sterilization at time of RC/S. Family History Father Cirrhosis at 51 Hepatitis C Mother Well adult Social History Smoking/Tobacco Use Status: Current every day Tobacco Type: cigarettes Smoking risk assessment performed?: Yes Alcohol Intake: current Alcohol Intake frequency: a few times a month Drug use: Never Substance use type: does not use Household members: spouse and other Details: H-Caleb Number of Children: 3 Do you feel safe at home: Yes Do you feel safe in your relationship?: Yes History History 3 Para 3 Hx # Term Pregnancies 3 Multiple births 0 Hx # Pregnancies 0 Ectopic pregnancies 0 AB induced 0 Hx Number of Living Children 3 AB spontaneous 0 Past Pregnancies Del. Date GA/Weeks # Outcome Route Wgt Sex Labor Lgth Anesthes ia Location Prov Complic 08/26/15 39 No Successful 3345.244 g Female [facility] 03/29/17 39 No Successful 3430.292 g Female [facility] 04/17/20 37 No Successful 3231.846 g Male [facility] Delivery Date: 08/26/15 Scheduled C/S for breech Aleta Alejandro Delivery Date: 03/29/17 scheduled repeat C/S Aleta Alejandro Delivery Date: 04/17/20 SROM with cervical dilation. Repeat with bilateral tubal ligation. Amarilys Olmstead Exam Const General: cooperative Orientation: alert HENMT Head: normal to inspection Eyes Conjunctivae: conjunctivae normal Chest Chest: no tenderness Resp Effort & Inspection: normal respiratory effort Cardio Rate: regular rate GI Inspection: normal to inspection Palpation: soft Auscultation: abnormal bowel sounds External Female Exam: normal external appearance Speculum Exam - Vagina: normal vaginal discharge Speculum Exam - Cervix: normal appearance of the cervix Bimanual Exam- Vagina & Uterus: normal bimanual exam Bimanual Exam- Adnexa, other: no masses and tender Other: left adnexal tenderness, mild cmt Back/Spine/Pelvis Back: CVA tenderness Thoracic/Lumbar Spine: thoracic and lumbar spine normal to inspection, thoraco- lumbar ROM normal, No paraspinal tenderness, No thoracic spinal tenderness and No lumbar spinal tenderness Skin General skin exam: no rashes or lesions noted Neuro General: patient alert Extrem General: no pedal edema Psych Appearance: grossly normal Course Vital Signs Vital signs: Respiratory Effort Non-Labored 09/27/20 12:30 Pain Level 8 09/27/20 12:30
[2020-09-27 13:49] LABS: Abs Immature Grans 0.02 10^3/uL (0.0-0.06); Absolute Basophil Count 0.03 10^3/uL (0.0-0.2); Absolute Eosinophil Count 0.48 10^3/uL (0.0-0.7); Absolute Lymphocyte Count 1.98 10^3/uL (1.2-3.4); Absolute Monocyte Count 0.49 10^3/uL (0.1-0.8); Absolute Neutrophil Count 5.29 10^3/uL (1.2-6.7); Basophils % 0.4; Eosinophils % 5.8; HCT 38.6 % (36.0-46.0); HGB 12.6 g/dL (11.2-15.7); Immature Grans % 0.2; Lymphocytes % 23.9; MCH 28.3 pg (27.0-33.0); MCHC 32.6 % (32.0-36.0); MCV 86.7 fL (80-95); MPV 9.6 fL (8.0-11.0); Monocytes % 5.9; Neutrophils % 63.8; Nucleated RBC 0 %; Platelet Count 348 10^3/uL (130-400); RBC 4.45 10^6/uL (3.93-5.22); RDW 12.5 % (11.7-14.6); RDW-SD 39.7 fL; WBC 8.29 10^3/uL (4.4-10.8)
[2020-09-27 13:54] LABS: Bilirubin Negative (Negative); Blood Negative (Negative); Clarity Clear (Clear); Glucose Negative (Negative); Ketones Negative (Negative); Leukocyte Esterase Negative (Negative); Nitrite Negative (Negative); Specific Gravity >= 1.030 (1.005-1.025); Urobilinogen 0.2 EU/dL (Up TO 0.2); pH 5.5 (5-8)
[2020-09-27 13:59] LABS: ALT 23 U/L (14-59); AST 18 U/L (15-37); Albumin 3.9 g/dL (3.4-5.0); Alkaline Phosphatase 114 U/L (46-116); Anion Gap 6.2 mmol/L (3-11); BUN 9 mg/dL (7-18); Bilirubin, Total 0.3 mg/dL (0.2-1.0); CO2 27.8 mmol/L (21.0-32.0); CREATININE 0.79 mg/dL (0.55-1.02); Calcium 8.6 mg/dL (8.5-10.1); Chloride 107 mmol/L (98-107); Glucose 94 mg/dL (74-106); Lipase 99 U/L (73-393); Potassium 3.9 mmol/L (3.5-5.1); Sodium 141 mmol/L (136-145); Total Protein 7.2 g/dL (6.4-8.2)
[2020-09-27 14:07] LABS: HCG Qual (Serum) Negative
[2020-09-27 14:50] VITALS: PULSE 55; RESP 16; TEMP 36.6; O2SAT 99
[2020-09-27] MEDS: cefTRIAXone 1 GM/50 ML BAG IVPB (15:51)
[2020-09-27 16:27] VITALS: BP 117/89; PULSE 72; RESP 16; TEMP 36.6; O2SAT 100
[2020-09-28 14:46] LABS: Chlamydia Result Negative (Negative); GC Result Negative (Negative)
== END 2020-09-27 16:34 | disposition home or self-care (01) ==
PROVIDERS: Emergency Provider Physician Assistant; PCP Nurse Practitioner Family
DX: N76.0 Acute vaginitis (principal); B96.89 Other specified bacterial agents as the cause of diseases classified elsewhere; N73.0 Acute parametritis and pelvic cellulitis
CPT/HCPCS: 36415; 80053; 83690; 87491; 87591; 96365; 99284; 76830; 76856; 81003; 84703; 85025; 87480; 87510; 87660; J0696

== ENCOUNTER 2021-02-08 17:05 | Emergency (ER) | payer MEDICAID, SELFPAY ==
[2021-02-08 17:09] VITALS: BP 121/51; PULSE 75; RESP 16; TEMP 36.6; O2SAT 99
--- NOTE | 2021-02-08 17:29 | W.ED.GENAD ---
Discharge Plan Disposition Patient Disposition: HOME Condition: Improving Discharge Details Clinical Impression: Pelvic pain, Vaginal itching Primary Care Provider: Ramesh Castaneda ED Provider: Rafaela Watson Home Meds and New Rx's Prescriptions: No Action fluconazole [Diflucan] 150 mg tablet 150 mg PO ONCE Qty: 1 RF: 0 Discharge Instructions Instructions: Yeast Infection (ED), Pelvic Pain in Women (ED) Additional Instructions: Your cervical swabs were negative for a yeast infection, bacterial vaginosis or trichomonas. Alternate tylenol and motrin as needed and directed for pain. An order has been placed for an outpatient pelvic ultrasound. The radiology department will call you regarding scheduling for this test Follow-up with [facility] for reevaluation. Return to the emergency department with any worsening or new concerning symptoms such as fever, worsening pain, persistent vomiting or any other concerns. Referrals: [facility] [Provider Group] Discharge Data Discharge Date/Time-TO BE ENTERED AT DEPARTURE: 02/08/21 20:38 Discharge Physician: Rafaela Watson Medical Decision Making 31-year-old female presents with suprapubic pain, vaginal itching and sensation of swelling, and itching with urination for the past 3 days Denies fever and she appears nontoxic. Vitals within normal limits. She has minimal suprapubic tenderness. Vaginal speculum exam note brown clear discharge from cervix with minimal white discharge. No cervical motion or adnexal tenderness or masses. No foreign bodies noted. No external genital lesions. test negative. Urinalysis negative for infection. Vaginitis screen negative. Patient was given Toradol and admitted to significant improvement in pain and feels good to go home. History and presentation does not appear consistent with ovarian torsion, appendicitis, diverticulitis, colitis. Will order an outpatient pelvic ultrasound. Patient advised to follow-up with [facility] for results. Advised to return here immediately with any worsening symptoms. Medical Records Medical records reviewed: Yes I reviewed the patient's medical records. Lab Data Lab results reviewed: Yes I reviewed the patient's lab results. Labs: 02/08/21 18:18 Vaginal Vaginitis Screen - Final Laboratory Tests Range/Units 02/08/21 17:55 Urine Color (Yellow) Yellow Urine Clarity (Clear) Clear Urine pH (5-8) 5.5 Ur Specific [place] (1.005-1.025) >= 1.030 H Urine Protein (Negative) mg/dL Negative Urine Ketones (Negative) mg/dL Negative Urine Blood (Negative) Negative Urine Nitrite (Negative) Negative Urine Bilirubin (Negative) Negative Urine Urobilinogen (Up TO 0.2) EU/dL 0.2 Ur Leukocyte Esterase (Negative) Negative Urine Glucose (Negative) mg/dL Negative HPI General Mode of arrival: ambulatory. Date/Time Provider Initiated Documentation: 02/08/21 17:05. Limitations to Documentation: no limitations. Information obtained by: patient. HPI Narrative: Pubic patient is a 31-year-old female who presents to the ED with complaint of pubic area pain, and sensation of vaginal itching and swelling for the past 2 days. Patient states she feels that she has intermittent sharp pain in her pubic area internally. She states she is sexually active with her and denies any known exposure to any STDs. She denies any vaginal discharge or genital lesions. She states she recently finished her menses but states it lasted longer than usual. She states she has had intermittent nausea but denies any vomiting, diarrhea, dysuria, hematuria urinary frequency. She states she does admit to some itching with urination. She denies any fever, upper abdominal pain, recent antibiotics, recent travel or recent known sick contacts Related Data Home Medications Medication Instructions Recorded Confirmed fluconazole 150 mg tablet 150 mg PO ONCE #1 tab 02/09/21 02/09/21 Previous Rx's Medication Instructions Recorded fluconazole 150 mg tablet 150 mg PO ONCE #1 tab 02/09/21 Allergies Allergy/AdvReac Type Severity Reaction Status Date / Time No Known Allergies Allergy Verified 02/08/21 17:14 General Stated Complaint: Abd Prob DAT: 3 Review of Systems All systems reviewed & are unremarkable except as noted in HPI and below Constitutional Constitutional: Reports as per HPI, Denies chills and Denies fever(s) Eyes Eyes: Denies blurry vision ENT Ears, Nose, Mouth, and Throat: Denies dizziness, Denies sore throat and Denies throat swelling Cardiovascular Cardiovascular: Denies chest pain and Denies dyspnea Respiratory Respiratory: Denies cough and Denies dyspnea Gastrointestinal Gastrointestinal: Reports abdominal pain, Denies diarrhea and Denies vomiting Genitourinary Genitourinary: Denies hematuria, Denies dysuria and Reports vaginal pruritus Musculoskeletal Musculoskeletal: Denies back pain and Denies numbness Integumentary/Breasts Skin/Breast: Denies lesions and Denies rash Neurologic Neurologic: Denies dizziness, Denies localized weakness and Denies numbness Allergic/Immunologic Allergic/Immunologic: Denies throat swelling PFSH Medical History Anemia affecting in third trimester 03/08/20. Hct 26%. Pt instructed to begin daily supplemental iron in addition to her vitamin. delivery delivered Labor presentation, breech Positive test Surgical History Hx of section Tubal ligation status Tubal sterilization at time of RC/S. Family History Father Cirrhosis at 51 Hepatitis C Mother Well adult Social History Smoking/Tobacco Use Status: Current every day Tobacco Type: cigarettes Smoking risk assessment performed?: Yes Alcohol Intake: current Alcohol Intake frequency: a few times a month Drug use: Never Substance use type: does not use Household members: spouse and other Details: H-Caleb Number of Children: 3 Do you feel safe at home: Yes Do you feel safe in your relationship?: Yes History History 3 Para 3 Hx # Term Pregnancies 3 Multiple births 0 Hx # Pregnancies 0 Ectopic pregnancies 0 AB induced 0 Hx Number of Living Children 3 AB spontaneous 0 Past Pregnancies Del. Date GA/Weeks # Outcome Route Wgt Sex Labor Lgth Anesthesia Location Prov Complic 08/26/15 39 No Successful 3345.244 g Female [facility] 03/29/17 39 No Successful 3430.292 g Female [facility] 04/17/20 37 No Successful 3231.846 g Male [facility] Delivery Date: 08/26/15 Scheduled C/S for breech Aleta Alejandro Delivery Date: 03/29/17 scheduled repeat C/S Aleta Alejandro Delivery Date: 04/17/20 SROM with cervical dilation. Repeat with bilateral tubal ligation. Amarilys [place] Exam Const General: cooperative, healthy appearing and no acute distress HENMT Head: normal to inspection Face and sinus: normal facial exam Eyes General: appearance normal, both eyes and all related structures EOM: EOM intact bilaterally Neck Neck: normal visual inspection and No submandibular swelling Lymphatic: no lymphadenopathy noted Chest Chest: normal inspection of the chest and no tenderness Resp Effort & Inspection: normal respiratory effort and able to speak in complete sentences Auscultation: clear to auscultation bilaterally Cardio Rate: regular rate Rhythm: regular rhythm GI Inspection: normal to inspection Palpation: soft, not firm, not rigid and nontender Auscultation: normal bowel sounds External Female Exam: normal external appearance Speculum Exam - Vagina: normal appearance of the vagina, not erythematous, no lacerations and no lesions Speculum Exam - Cervix: closed and abnormal cervical discharge (Brownish clear. Some areas of white around edge of cervix) Bimanual Exam- Vagina & Uterus: normal bimanual exam and no cervical motion tenderness Bimanual Exam- Adnexa, other: normal adnexae and no masses Skin General skin exam: no rashes or lesions noted Neuro General: patient alert, patient awake and patient oriented x3 Cognition: normal cognition Speech: speech normal Motor: muscle tone normal throughout Sensory Exam: no sensory deficits noted Extrem General: normal to inspection, full ROM, capillary refill normal, no calf tenderness bilaterally and no edema Psych Appearance: grossly normal Mental Status: mental status grossly normal Speech and Movement: speech and movement normal Affect: normal affect Course Vital Signs Vital signs: Vital Signs Temperature 97.9 F 02/08/21 17:09 Pulse 75 02/08/21 17:09 Respiratory Rate 16 02/08/21 17:09 Blood Pressure 121/51 L 02/08/21 17:09 Pulse Oximetry 99 02/08/21 17:09 Temperature 97.9 F 02/08/21 17:09 Pulse 75 02/08/21 17:09 Respiratory Rate 16 02/08/21 17:09 Respiratory Effort Non-Labored 02/08/21 17:13 Blood Pressure 121/51 L 02/08/21 17:09 Blood Pressure Position Sitting 02/08/21 17:09 Pulse Oximetry 99 02/08/21 17:09 Oxygen Delivery Method Room Air 02/08/21 17:09 Oxygen Flow Rate 0 02/08/21 17:09 Pain Level 6 02/08/21 17:09
[2021-02-08] MEDS: Ketorolac 60 MG/2 ML VIAL IM (17:58)
[2021-02-08 18:07] LABS: Bilirubin Negative (Negative); Blood Negative (Negative); Clarity Clear (Clear); Glucose Negative (Negative); Ketones Negative (Negative); Leukocyte Esterase Negative (Negative); Nitrite Negative (Negative); Specific Gravity >= 1.030 (1.005-1.025); Urobilinogen 0.2 EU/dL (Up TO 0.2); pH 5.5 (5-8)
--- NOTE | 2021-02-08 20:54 | NUR.NOTE ---
Out Patient ultrasound request faxed to [facility]. Patient given pelvic ultrasound instruction on discharge. Patient told to call [facility] in a.m. to schedule appointment.Nursing Note:
[2021-02-08 23:31] VITALS: BP 121/51; PULSE 75; RESP 16; TEMP 36.6; O2SAT 99
[2021-02-10 15:15] LABS: Chlamydia Result Negative (Negative); GC Result Negative (Negative)
== END 2021-02-08 20:38 | disposition home or self-care (01) ==
PROVIDERS: Emergency Provider Physician Assistant; PCP Nurse Practitioner Family
DX: R10.2 Pelvic and perineal pain (principal); L29.2 Pruritus vulvae
CPT/HCPCS: 81025; 87491; 87591; 96372; 99284; 81003; 87480; 87510; 87660; 99283; J1885

== ENCOUNTER 2021-02-09 14:48 | Outpatient (CLI) | payer MEDICAID, SELFPAY ==
--- NOTE | 2021-02-09 | DI.US_ITS ---
Exam(s) US PELVIS TRANSVAGINAL EXAM: US PELVIS TRANSVAGINAL CLINICAL HISTORY: PELVIC PAIN, VAGINAL SWELLING, ITCHING. TECHNIQUE: Transabdominal and transvaginal pelvic ultrasound was performed using standard protocol. COMPARISON: US US PELVIS TRANSVAGINAL from 09/27/2020 FINDINGS: KIDNEYS: Kidneys are symmetric in size. No evidence of renal calculi. No evidence of hydronephrosis. No renal mass or cyst identified. UTERUS: Position: Anteverted. Size: 9.7 long by 4.8 AP by 6.2 transverse cm Endometrium: 0.8 cm. Normal for patient's menstrual status. Myometrium: Unremarkable. Cervix: Unremarkable. OVARIES: No evidence of ovarian torsion. Right: 3.4 x 2.1 x 2.1 cm Cyst or mass: Small functional cysts are present. Left: 3.1 x 2 x 1.8 cm Cyst or mass: Small functional cysts are present. The largest cyst measures 1.8 x 1.5 x 1.6 cm. DOPPLER: Color: Symmetric and uniform flow to both ovaries. No hyperemia. Duplex: Normal ovarian arterial waveforms visualized. CUL-DE-SAC: Free fluid: None. Other: None. IMPRESSION: 1. Normal sonographic appearance of the kidneys. 2. Normal-appearing uterus with endometrial stripe within normal limits. 3. Unremarkable bilateral ovaries. No evidence of ovarian torsion. DATA REPOSITORY:
== END 2021-02-09 15:08 ==
PROVIDERS: PCP Nurse Practitioner Family; Visit Provider Physician Assistant
DX: R10.2 Pelvic and perineal pain (principal); L29.2 Pruritus vulvae
CPT/HCPCS: 76830; 76856

== ENCOUNTER 2022-01-23 21:26 | Emergency (ER) | payer MEDICAID, SELFPAY ==
[2022-01-23 21:47] VITALS: BP 112/57; PULSE 78; RESP 20; TEMP 37; O2SAT 99
--- NOTE | 2022-01-23 22:00 | W.ED.GENAD ---
Discharge Plan Disposition Patient Disposition: HOME Condition: Good Discharge Details Clinical Impression: Pneumonia, Cough Primary Care Provider: Ramesh Castaneda ED Provider: Brad Zamudio Home Meds and New Rx's Prescriptions: New benzonatate 100 mg capsule 100 mg PO TID Qty: 30 0RF azithromycin 250 mg tablet 250 mg PO DAILY 4 Days Qty: 4 0RF Rx Instructions: start on day 2 of therapy Discharge Instructions Instructions: Pneumonia (ED) Additional Instructions: At this time your symptoms appear concerning for mild pneumonia. Please take the antibiotic as directed. It is been sent to your pharmacy. If your COVID/flu/RSV returned positive, I will contact you. If you notice any worsening of your symptoms, or any new symptoms such as vomiting, diarrhea, fever, chills, shortness of breath, chest pain, numbness, weakness, or fainting , please return immediately to the emergency department for reevaluation. Please follow up with your primary care provider as soon as possible for reassessment and reevaluation. As always, it was a pleasure participating in your medical care today. Stand Alone Forms: Work Release Referrals: Ramesh Castaneda, [employer] [Primary Care Provider] - Medical Decision Making 32-year-old female who does smoke, presents for evaluation of cough fever for the last 2 to 3 days. Patient states that multiple other sick contact at work Identical symptoms. She denies any hemoptysis. She denies any chest pain or shortness of breath. She has continues to smoke. She did take a home COVID test which was negative earlier. She has taken occasional Tylenol and Motrin which have helped with fever. She denies any other complaints at this time. No other modifying factors. Physical exam demonstrates clear lung sounds, however bedside ultrasound actually shows a small amount of B-lines and consolidation in the left mid lobe. No evidence of pneumothorax. No evidence of significant fluid collection otherwise. Symptoms are consistent with mild early pneumonia. Concerning for bacterial etiology. We will get COVID/flu/RSV testing and contact the patient if the results are positive. We will start the patient on azithromycin. Will give Tessalon Perles for cough. Red flags were. No indication for emergent factors seen at this time with the ultrasound findings. I have extensively reviewed the treatment plan and discharge instructions with the patient. I have addressed all patient concerns at this time. The patient was made aware of what symptoms to monitor for that would warrant a return to the emergency department. Discussed the plan with the patient, they demonstrate verbal understanding and agreement with our assessment and plan at this time. The documentation in this chart was dictated using [employer] dictation software. Please excuse any dictation errors. Patient's COVID test is returned negative unfortunately the patient's flu test is positive. I did contact the patient and informed her of the results. HPI General Date/Time Provider Initiated Documentation: 01/23/22 21:40. HPI Narrative: 32-year-old female who does smoke, presents for evaluation of cough fever for the last 2 to 3 days. Patient states that multiple other sick contact at work Identical symptoms. She denies any hemoptysis. She denies any chest pain or shortness of breath. She has continues to smoke. She did take a home COVID test which was negative earlier. She has taken occasional Tylenol and Motrin which have helped with fever. She denies any other complaints at this time. No other modifying factors. Patient has not had her COVID-vaccine. Related Data Home Medications Medication Instructions Recorded Confirmed azithromycin 250 mg tablet 250 mg PO DAILY 4 days #4 tabs 01/23/22 benzonatate 100 mg capsule 100 mg PO TID #30 caps 01/23/22 Previous Rx's Medication Instructions Recorded azithromycin 250 mg tablet 250 mg PO DAILY 4 days #4 tabs 01/23/22 benzonatate 100 mg capsule 100 mg PO TID #30 caps 01/23/22 Allergies Allergy/AdvReac Type Severity Reaction Status Date / Time No Known Allergies Allergy Verified 01/23/22 21:49 General Stated Complaint: Fever DAT: 4 Review of Systems All systems reviewed & are unremarkable except as noted in HPI and below PFSH All Active Problems Pneumonia (Acute) Cough (Acute) Pelvic pain (Acute) Vaginal itching (Acute) Tubal ligation status (Chronic) Tubal sterilization at time of RC/S. examination following delivery (Acute) Previous section (Chronic) 2015 and 2013 at [facility] 2020 at [facility] Medical History Anemia affecting in third trimester 03/08/20. Hct 26%. Pt instructed to begin daily supplemental iron in addition to her vitamin. delivery delivered Labor presentation, breech Positive test Family History Father Cirrhosis at 51 Hepatitis C Mother Well adult Social History Smoking/Tobacco Use Status: Current every day Tobacco Type: cigarettes Smoking risk assessment performed?: Yes Alcohol Intake: current Alcohol Intake frequency: a few times a month Drug use: Never Substance use type: does not use Household members: spouse and other Details: H-Caleb Number of Children: 3 Do you feel safe at home: Yes Do you feel safe in your relationship?: Yes History History 3 Para 3 Hx # Term Pregnancies 3 Multiple births 0 Hx # Pregnancies 0 Ectopic pregnancies 0 AB induced 0 Hx Number of Living Children 3 AB spontaneous 0 Past Pregnancies Del. Date GA/Weeks # Outcome Route Wgt Sex Labor Lgth Anesthesia Location Prov Complic 08/26/15 39 No Successful 3345.[address] [facility] 03/29/17 39 No Successful 3430.[address] [facility] 04/17/20 37 No Successful 3231.846 g Male [facility] Delivery Date: 08/26/15 Last Updated by: Aleta Alejandro Scheduled C/S for breech Delivery Date: 03/29/17 Last Updated by: Aleta Alejandro scheduled repeat C/S Delivery Date: 04/17/20 Last Updated by: Amarilys Lee M.D. SROM with cervical dilation. Repeat with bilateral tubal ligation. Roc Exam Narrative Exam Narrative: 1.Const: Well-nourished, Well-developed, appearing stated age 2.Eyes: PERRL, no conjunctival injection, and symmetrical lids. 3.ENT: Atraumatic external nose and ears. Moist MM. Neck: Symmetric, trachea midline, No thyromegaly. 4.CVS: +S1/S2, No murmurs or gallops. Peripheral pulses 2+ and equal in all extremities. Brisk capillary refill in all extremities. 5.RESP: Unlabored respiratory effort. Clear to auscultation bilaterally. No wheezes rales or rhonchi 6.GI: Soft, Nontender/Nondistended, No hepatosplenomegaly. No guarding or rebound. 7.MSK: Normocephalic/Atraumatic, Extremities w/o deformity or ttp No cyanosis or clubbing, Normal movement of all extremities 8.Skin: Warm, Dry. No rashes or lesions. 9.Neuro: exam proctor II-XII grossly intact. Sensation grossly intact, no focal neurologic deficits. 10.Psych: (AAO) x3. Appropriate mood and affect Course Vital Signs Vital signs: Vital Signs Temperature 37 C 01/23/22 21:47 Pulse 78 01/23/22 21:47 Respiratory Rate 20 01/23/22 21:47 Blood Pressure 112/57 L 01/23/22 21:47 Pulse Oximetry 99 01/23/22 21:47 Temperature 37 C 01/23/22 21:47 Temperature Source Temporal Artery Scan 01/23/22 21:47 Pulse 78 01/23/22 21:47 Respiratory Rate 20 01/23/22 21:47 Blood Pressure 112/57 L 01/23/22 21:47 Blood Pressure Position Sitting 01/23/22 21:47 Pulse Oximetry 99 01/23/22 21:47 Oxygen Delivery Method Room Air 01/23/22 21:47 Oxygen Flow Rate 0 01/23/22 21:47
[2022-01-23] MEDS: Azithromycin 250 MG TAB 500 MG PO (22:13)
[2022-01-23] MEDS: Benzonatate 100 MG CAP PO (22:14)
[2022-01-23 23:04] LABS: COVID-19 PCR Negative (Negative); Influenza A PCR Positive (Negative); Influenza B PCR Negative (Negative); RSV PCR Negative (Negative)
[2022-01-23 23:17] LABS: Source Nasopharynx
== END 2022-01-23 22:15 | disposition home or self-care (01) ==
PROVIDERS: Emergency Provider Student in an Organized Health Care Education/Training Program; PCP Nurse Practitioner Family
DX: J10.00 Influenza due to other identified influenza virus with unspecified type of pneumonia (principal); R05.1 Acute cough; R50.9 Fever, unspecified
CPT/HCPCS: 87637; 99283

== ENCOUNTER → 2022-07-02 15:58 | Outpatient (CLI) | payer MEDICAID, SELFPAY ==
--- NOTE | 2022-07-02 14:15 | DI.RAD_ITS ---
Exam(s) XR WRIST LT COMP NAVICULAR EXAM: XR WRIST LT COMP NAVICULAR CLINICAL HISTORY: PAIN IN LEFT WRIST--[id number]. TECHNIQUE: 2D digital imaging was performed. Four views. COMPARISON: No exams were available for comparison FINDINGS: BONES: No acute fracture is present. No bony destructive lesion is seen. JOINTS: The carpal bones are normally aligned. SOFT TISSUE: Normal. IMPRESSION: Unremarkable radiographs of the left wrist. DATA REPOSITORY: RADIATION DOSE DELIVERED:
== END ==
PROVIDERS: Visit Provider Physician Assistant
DX: M25.532 Pain in left wrist (principal)
CPT/HCPCS: 73110